=== PATIENT | female | born 1940 ===

== ENCOUNTER 2017-05-03 15:15 | Emergency (ER) | payer MEDICARE ==
[2017-05-03 15:16] VITALS: BMI 25.4
[2017-05-03 15:34] VITALS: BP 128/88; PULSE 81; RESP 16; TEMP 97.6; O2SAT 96
[2017-05-03 16:05] LABS: BASO % 0.4 % (0.0-2.0); EOS % 0.2 % (0.0-4.0); HEMATOCRIT 41.3 % (34.0-47.0); LYMPH # 1.7 K/uL (1.0-4.3); LYMPH % 20.6 % (20.0-40.0); MEAN CELL VOLUME 88.4 fl (81.0-99.0); MEAN CORPUSCULAR HEMOGLOBIN 30.5 pg (27.0-31.0); MEAN CORPUSCULAR HGB CONC 34.5 g/dL (33.0-37.0); MEAN PLATELET VOLUME 7.7 fl (7.2-11.7); MONO # 0.5 K/uL (0.0-0.8); MONO % 6.4 % (0.0-10.0); NEUT # 6.1 K/uL (1.8-7.0); NEUT % 72.4 % (50.0-75.0); NRBC % 0.1 % (0.0-0.0); RED CELL DISTRIBUTION WIDTH 13.2 % (11.5-14.5); WHITE BLOOD COUNT 8.4 K/uL (4.8-10.8)
--- NOTE | 2017-05-03 16:06 | ED PDOC ---
HPI: Psych/Substance Abuse Time Seen by Provider: 05/03/17 15:41 Chief Complaint (Nursing): Psychiatric Evaluation Chief Complaint (Provider): Psychiatric Evaluation History Per: Patient History/Exam Limitations: no limitations Onset/Duration Of Symptoms: Days (x 2) Current Symptoms Are (Timing): Still Present Associated Symptoms: Depression, Suicidal Thoughts. denies: Suicidal Plan Additional Complaint(s): Carolynn is a 76 y/o female who presents to the ED for crisis evaluation. She reports taking Ambien 10 mg and Ativan 0.5 mg together after a recent medication change. Since yesterday, patient is experiencing increased drowsiness and waking up with suicidal ideations. Patient is depressed, crying in the ED, and does not have a suicidal plan. PMD: Unknown Past Medical History Reviewed: Historical Data, Nursing Documentation, Vital Signs Vital Signs: Last Vital Signs Temp 97.6 F 05/03/17 15:31 Pulse 81 05/03/17 15:31 Resp 16 05/03/17 15:31 BP 128/88 05/03/17 15:31 Pulse Ox 96 05/03/17 15:31 - Medical History PMH: Gastritis, Gall Bladder Disease, HTN, Hypercholesterolemia - Surgical History Surgical History: Cholecystectomy - Family History Family History: States: Unknown Family Hx - Immunization History Hx Tetanus Toxoid Vaccination: Yes Hx Influenza Vaccination: Yes Hx Pneumococcal Vaccination: Yes - Home Medications Home Medications: Ambulatory Orders Medication Instructions Recorded hydroCHLOROthiazide [Hydrodiuril] 25 mg PO DAILY 08/10/16 LORazepam [Ativan] 1 mg PO HS PRN 01/31/17 Pantoprazole [Protonix EC Tab] 40 mg PO DAILY 04/30/17 Melatonin 1 mg PO DAILY #30 tab 05/03/17 Zolpidem [Ambien] 10 mg PO HS 05/03/17 - Allergies Allergies/Adverse Reactions: Allergies Allergy/AdvReac Type Severity Reaction Status Date / Time No Known Allergies Allergy Verified 05/03/17 15:31 Review of Systems ROS Statement: Except As Marked, All Systems Reviewed And Found Negative Psych: Positive for: Depression, Suicidal ideation (without suicidal plan), Other (Increased sleepiness) Physical Exam - Reviewed Nursing Documentation Reviewed: Yes Vital Signs Reviewed: Yes - Physical Exam Appears: Positive for: Non-toxic, No Acute Distress Head Exam: Positive for: ATRAUMATIC, NORMAL INSPECTION, NORMOCEPHALIC Skin: Positive for: Normal Color, Warm, Dry Eye Exam: Positive for: EOMI, Normal appearance, PERRL Neck: Positive for: Normal, Painless ROM, Supple Cardiovascular/Chest: Positive for: Regular Rate, Rhythm. Negative for: Murmur Respiratory: Positive for: Normal Breath Sounds. Negative for: Accessory Muscle Use, Respiratory Distress Back: Positive for: Normal Inspection. Negative for: Vertebral Tenderness Extremity: Positive for: Normal ROM. Negative for: Deformity Neurologic/Psych: Positive for: Alert, Oriented, Other (Crying on exam) - Laboratory Results Result Diagrams: 05/03/17 15:59 05/03/17 15:59 - ECG O2 Sat by Pulse Oximetry: 96 (RA) Pulse Ox Interpretation: Normal Medical Decision Making Medical Decision Making: Time: 15:38 Initial Impression: Crisis evaluation Initial Plan: --Ordered EKG, urinalysis, CBC, urine drug screen, CMP, and alcohol serology --Placed in a 1:1 observation --Patient will be medically cleared and have crisis evaluation 17:59 Pt will be d/c with depression. advised to take melatonin for sleeping given outpt tx. Scribe Attestation: Documented by Brenda Weems, acting as a scribe for Ananya Majano PA-C Provider Scribe Attestation: All medical record entries made by the Scribe were at my direction and personally dictated by me. I have reviewed the chart and agree that the record accurately reflects my personal performance of the history, physical exam, medical decision making, and the department course for this patient. I have also personally directed, reviewed, and agree with the discharge instructions and disposition. Disposition - Clinical Impression Clinical Impression: Depression - Patient ED Disposition Is Patient to be Admitted: No Counseled Patient/Family Regarding: Studies Performed, Diagnosis, Need For Followup, Rx Given - Disposition Disposition: Routine/Home Disposition Time: 18:03 Condition: STABLE Prescriptions: Melatonin 1 mg PO DAILY #30 tab Instructions: Depression (ED) Forms: [facility] (Bulgarian)
[2017-05-03 16:16] LABS: RBC URINE 2 /hpf (0-3); URINE BACTERIA RARE (<OCC); URINE BILIRUBIN NEGATIVE (NEGATIVE); URINE BLOOD NEGATIVE (NEGATIVE); URINE COLOR STRAW (YELLOW); URINE GLUCOSE (UA) NEG (Normal); URINE KETONE NEGATIVE (NEGATIVE); URINE LEUKOCYTE ESTERASE SMALL Leu/uL (Negative); URINE PROTEIN NEGATIVE (NEGATIVE); URINE UROBILINOGEN 0.2-1.0 mg/dL (0.2-1.0); WBC URINE 5 /hpf (0-5)
[2017-05-03 16:27] LABS: ALB/GLOB RATIO 1.5 (1.0-2.1); ALCOHOL SERUM < 10 mg/dl (0-10); ALKALINE PHOSPHATASE 66 U/L (38-126); ALT/SGPT 41 U/L (9-52); AST/SGOT 30 U/L (14-36); BILIRUBIN,TOTAL 0.6 mg/dl (0.2-1.3); BLOOD UREA NITROGEN 15 mg/dl (7-17); CALCIUM 9.8 mg/dL (8.4-10.2); CARBON DIOXIDE 29 mmol/L (22-30); CHLORIDE 96 mmol/L (98-107); GFR AFRICAN-AMERICAN > 60; GLUCOSE,RANDOM 117 mg/dL (65-105); POTASSIUM 3.9 MMOL/L (3.6-5.0); SODIUM 135 mmol/l (132-148); TOTAL PROTEIN 7.6 G/DL (6.3-8.2)
--- NOTE | 2017-05-04 13:16 | CARD ---
APPROVED REPORT EKG Measurement Heart [id number] <Conclusion> Normal sinus rhythm Inferior infarct, age undetermined Possible Anterior infarct, age undetermined Abnormal ECG
== END 2017-05-03 18:17 | disposition home or self-care (01) ==
LOC: H.ER 15:15
DX: F32.9 Major depressive disorder, single episode, unspecified (principal); E78.00 Pure hypercholesterolemia, unspecified; I10 Essential (primary) hypertension
CPT/HCPCS: 80053; 81003; 85025; 93005; 99282; G0480

== ENCOUNTER 2017-05-04 10:56 | Inpatient (IN) | payer MEDICARE ==
[2017-05-04 11:03] VITALS: BMI 24.0
--- NOTE | 2017-05-04 11:26 | ED PDOC ---
HPI: Psych/Substance Abuse Time Seen by Provider: 05/04/17 11:17 Chief Complaint (Provider): suicidal ideation History Per: Patient History/Exam Limitations: no limitations Additional Complaint(s): Carolynn Tobar is a 76 year old female, with a previous medical history of anxiety and hypertension, who presents to the ED with complaints of insomnia associated with depression and suicidal ideation with no plan. She denies any homicidal ideation or other medical complaints at this time. Patient was seen in the ED yesterday and reports symptoms have not resolved. Past Medical History Reviewed: Historical Data, Nursing Documentation, Vital Signs Vital Signs: Last Vital Signs Temp 97.9 F 05/04/17 11:02 Pulse 70 05/04/17 11:02 Resp 16 05/04/17 11:02 BP 150/90 05/04/17 11:02 Pulse Ox 100 05/04/17 11:02 - Medical History PMH: Anxiety, Gastritis, Gall Bladder Disease, HTN, Hypercholesterolemia Denies: Diabetes, Hepatitis, HIV, Seizures, Sexually Transmitted Disease - Surgical History Surgical History: Cholecystectomy - Family History Family History: States: Unknown Family Hx - Immunization History Hx Tetanus Toxoid Vaccination: Yes Hx Influenza Vaccination: Yes Hx Pneumococcal Vaccination: Yes - Home Medications Home Medications: Ambulatory Orders Medication Instructions Recorded hydroCHLOROthiazide [Hydrodiuril] 25 mg PO DAILY 08/10/16 LORazepam [Ativan] 1 mg PO HS PRN 01/31/17 Pantoprazole [Protonix EC Tab] 40 mg PO DAILY 04/30/17 Melatonin 1 mg PO DAILY #30 tab 05/03/17 Zolpidem [Ambien] 10 mg PO HS 05/03/17 - Allergies Allergies/Adverse Reactions: Allergies Allergy/AdvReac Type Severity Reaction Status Date / Time No Known Allergies Allergy Verified 05/03/17 15:31 Review of Systems ROS Statement: Except As Marked, All Systems Reviewed And Found Negative Psych: Positive for: Depression, Suicidal ideation. Negative for: Other ( homicidal ideation) Physical Exam - Reviewed Nursing Documentation Reviewed: Yes Vital Signs Reviewed: Yes - Physical Exam Appears: Positive for: Well (appears tearful), Non-toxic, No Acute Distress Head Exam: Positive for: ATRAUMATIC, NORMAL INSPECTION, NORMOCEPHALIC Skin: Positive for: Normal Color, Warm, DRY Eye Exam: Positive for: EOMI, Normal appearance, PERRL ENT: Positive for: Normal ENT Inspection Neck: Positive for: Normal, Painless ROM Cardiovascular/Chest: Positive for: Regular Rate, Rhythm Respiratory: Positive for: CNT, Normal Breath Sounds Gastrointestinal/Abdominal: Positive for: Normal Exam, Bowel Sounds, Soft Back: Positive for: Normal Inspection Extremity: Positive for: Normal ROM Neurologic/Psych: Positive for: Alert, Oriented - ECG O2 Sat by Pulse Oximetry: 100 (RA) Pulse Ox Interpretation: Normal Medical Decision Making Medical Decision Making: Initial Plan: * crisis evaluation * admission Scribe Attestation: Documented by Adriana Richards, acting as a scribe for Cliff Connor MD. Medically stable for psychiatric admission Provider Scribe Attestation: All medical record entries made by the Scribe were at my direction and personally dictated by me. I have reviewed the chart and agree that the record accurately reflects my personal performance of the history, physical exam, medical decision making, and the department course for this patient. I have also personally directed, reviewed, and agree with the discharge instructions and disposition. Disposition - Clinical Impression Clinical Impression: Depression - Patient ED Disposition Is Patient to be Admitted: Yes - Disposition Disposition Time: 11:34 Condition: FAIR - Pt Status Changed To: Hospital Disposition Of: Inpatient - Admit Certification Admit to Inpatient:: After my assessment, the patient will require hospitalization for at least two midnights. This is because of the severity of symptoms shown, intensity of services needed, and/or the medical risk in this patient being treated as an outpatient. - POA Present On Arrival: None
[2017-05-04 13:26] VITALS: O2SAT 98
--- NOTE | 2017-05-04 15:55 | PCM.PSYCH ---
Initial Psychiatric Evaluation - Initial Psychiatric Evaluation Type of Admission: Voluntary Legal Status: Guardian Chief Complaint (in patient's own words): pt is depressed Patient's Reaction to Hospitalization: pt is sad History of Present Illness and Precipitating Events: This is a 76 yr old female presents to the ED with complaints of insomnia associated with depression and suicidal ideation with no plan. She denies any homicidal ideation or other medical complaints at this time. Patient was seen in the ED yesterday and reports symptoms have not resolved pt was sween by pMD and started on meds but became more depressed and referred to ER. Past Psychiatric History - Past Psychiatric History History of Abuse: not known History of ETOH/Drug Use: denies History of Family Illness: denies Pertinent Medical Hx (Current Medical&Sleep Prob, Allergies): Allergies Allergy/AdvReac Type Severity Reaction Status Date / Time No Known Allergies Allergy Verified 05/03/17 15:31 hydroCHLOROthiazide [Hydrodiuril] 25 mg PO DAILY 08/10/16 LORazepam [Ativan] 1 mg PO HS PRN 01/31/17 Pantoprazole [Protonix EC Tab] 40 mg PO DAILY 04/30/17 Melatonin 1 mg PO DAILY #30 tab 05/03/17 Zolpidem [Ambien] 10 mg PO HS 05/03/17 HTN,GERD Review of Systems - Review of Systems All systems: reviewed and no additional remarkable complaints except Mental Status Examination - Affect Affect: Constricted - Motor Activity Motor Activity: Calm - Reliability in Providing Information Reliability in Providing Information: Fair - Speech Speech: Relevant - Mood Mood: Depressed - Formal Thought Process Formal Thought Process: No Impairment - Obsessions/Compulsions Compulsions: No - Cognitive Functions Orientation: Person, Place, Situation Sensorium: Alert Attention/Concentration: Easily distracted Judgement: Imparied, as evidence by: Lack of insight into illness Memory: Recent intact, as evidence by: Ability to recall events of the day, Remote intact, as evidenced by: Ability to recall historical events DSM 5 DX - DSM 5 DSM 5 Diagnosis: major depresion,severe - Recommended/Plan of Treatment Treatment Recommendations and Plan of Treatment: Will get more collateral info from familty Will star pt on celexa 10 mg hs for depression and titrate as needed and trazodone 25 mg hs for sleep
[2017-05-04] MEDS ORDERED: Magnesium Hydroxide Susp 30 ml UD PO PRN (16:44)
[2017-05-04] MEDS ORDERED: Alum-Mag Hydrox-Simethicone Susp (30 mL) PO PRN (16:44)
[2017-05-05 08:02] LABS: T4 9.11 ug/dl (5.5-11.0)
[2017-05-05 08:16] LABS: THYROID STIMULATING HORMONE 2.75 mIU/ML (0.46-4.68)
[2017-05-05 09:19] LABS: CHOLESTEROL 215 mg/dL (0-199)
[2017-05-05] MEDS: Pantoprazole 40 mg EC Tab PO SCH (09:36)
--- NOTE | 2017-05-05 10:51 | PCM.PYCHPN ---
Psychiatric Progress Note - Psychiatric Progress Note Patient seen today, length of contact: Patient evaluated, case discussed with team, chart reviewed, 35 min Patient Chief Complaint: "I can't sleep" Problems Identified/Issues Discussed: Patient reports that she continues to feel depressed and that her insomnia makes her even more depressed and causes her to feel desperate. We discussed increasing the Trazodone. No adverse effects to medications noted. No psychotic symptoms. No suicidal/homicidal ideation. Medication Change: Yes (Increase Trazodone to 100 mg PO HS) Medical Record Reviewed: Yes Consults ordered or reviewed: Medicine consult Mental Status Examination - Cognitive Function Orientation: Person, Place, Situation Memory: Intact Association: WNL Fund of Knowledge: [facility] Decription of patient's judgement and insights: Fair I/J - Mood Mood: Depressed - Affect Affect: Constricted - Speech Speech: Appropriate - Formal Thought Process Formal Thought Process: No Impairment Psychotic Thoughts and Behaviors: No AH/VH/paranoia/delusions - Suicidal Ideation Suicidal Ideation: No - Homicidal Ideation Homicidal Ideation: No Goal/Treatment Plan - Goal/Treatment Plan Need for Continued Stay: Remain at risks for inpatient hospitalization, Severe depression anxiety Progress Toward Problem(s) and Goals/Treatment Plan: Major Depressive Disorder -Continue Celexa 10 mg PO HS -Increase Trazodone to 100 mg PO HS -Individual and group therapy -Medicine consult -Disposition planning Estimated Date of D/C: 05/09/17
[2017-05-05 17:50] LABS: FOLATE 17.9 ng/mL
[2017-05-06] MEDS: Pantoprazole 40 mg EC Tab PO SCH (08:24)
--- NOTE | 2017-05-06 10:46 | PCM.PYCHPN ---
Psychiatric Progress Note - Psychiatric Progress Note Patient seen today, length of contact: Patient evaluated, case discussed with team, chart reviewed, 35 min Patient Chief Complaint: "I can't sleep" Problems Identified/Issues Discussed: Patient reports that she continues to have difficulty sleeping and does not want to take Trazodone any more because she does not think it is effective. We discussed starting Restoril. R/b/se reviewed, patient given a handout in dominican about the medication. No adverse effects to medications noted. No psychotic symptoms. No suicidal/homicidal ideation. Medication Change: Yes (Stop Trazodone, Start Restoril 15 mg PO HS) Medical Record Reviewed: Yes Mental Status Examination - Cognitive Function Orientation: Person, Place, Situation Memory: Intact Attention: WNL Association: L Fund of Knowledge: [facility] Decription of patient's judgement and insights: Fair I/J - Mood Mood: Depressed - Affect Affect: Constricted - Speech Speech: Appropriate - Formal Thought Process Formal Thought Process: No Impairment Psychotic Thoughts and Behaviors: No AH/VH/paranoia/delusions - Suicidal Ideation Suicidal Ideation: No - Homicidal Ideation Homicidal Ideation: No Goal/Treatment Plan - Goal/Treatment Plan Need for Continued Stay: Remain at risks for inpatient hospitalization, Severe depression anxiety Progress Toward Problem(s) and Goals/Treatment Plan: Major Depressive Disorder; patient is reporting improved mood, but continues to report difficulty sleeping. -Continue Celexa 10 mg PO HS -Stop Trazodone, start Restoril 15 mg PO HS -Individual and group therapy -Medicine consult -Disposition planning- likely discharge tomorrow w/ outpatient follow-up Estimated Date of D/C: 05/07/17
[2017-05-07 05:59] VITALS: BP 114/77; PULSE 65; RESP 18; TEMP 98.3
[2017-05-07] MEDS: Pantoprazole 40 mg EC Tab PO SCH (08:44)
--- NOTE | 2017-05-07 09:55 | PCM.PYCHDC ---
Mental Status Examination - Mental Status Examination Orientation: Person, Place, Situation, Time Memory: Intact Mood: Neutral Affect: Broad Speech: Appropriate Attention: WNL Concentration: WNL Association: WNL Fund of Knowledge: WNL Formal Thought Process: No Impairment Description of patient's judgement and insight: Fair I/J Psychotic Thoughts and Behaviors: No AH/VH/paranoia/delusions Suicidal Ideation: No Current Homicidal Ideation?: No Discharge Summary - Discharge Note Reason for Hospitalization: This is a 76 yr old female presents to the ED with complaints of insomnia associated with depression and suicidal ideation with no plan. She denies any homicidal ideation or other medical complaints at this time. Patient was seen in the ED yesterday and reports symptoms have not resolved pt was sween by pMD and started on meds but became more depressed and referred to ER. Consultations:: List each consultation separately and include: 1. Reason for request. 2. Findings. 3. Follow-up Consultations: Medicine consult Summary of Hospital Course include:: 1. Description of specific treatment plan utilized for patients during their course of treatmen. 2. Summarize the time- course for resolution of acute symptoms and/or regressed behaviors. 3. Describe issues identified and worked on during hospitalization. 4. Describe medication utilized. 5. Describe medical problems identified and treated. 6. Reassessment of suicide risk Summary of Hospital Course: Patient was admitted to the psychiatry unit. Individual and group therapy were provided. Patient was stabilized on Celexa 10 mg PO HS and Restoril 15 mg PO HS PRN insomnia. She reports improved mood and sleep. She is psychiatrically stable for discharge with outpatient follow-up. - Final Diagnosis (DSM 5) Condition upon Discharge: STABLE DSM 5: Major Depressive Disorder Disposition: HOME/ ROUTINE Follow-up Treatment Plan: Major Depressive Disorder; patient is psychiatrically stable for discharge -Continue Celexa 10 mg PO HS -Continue Restoril 15 mg PO HS PRN insomnia -Individual and group therapy -Medicine consult appreciated -Outpatient follow-up Discharge >35 min Prescriptions/Medication Reconciliation: Citalopram [celeXA] 10 mg PO HS #30 tab Temazepam [Restoril] 15 mg PO HS #30 cap - Smoking Cessation Smoking Cessation Medication prescribed: No Reason for not providing: Not indicated - Antipsychotic Medications Pt discharged on 2 or more routine antipsychotic medications: No
== END 2017-05-07 13:24 | disposition home or self-care (01) | DRG 881 ==
LOC: H.ER 10:56 → H.ERHOLD 11:31 → H.STEP 13:40
PROVIDERS: ADMIT Psychiatry & Neurology Psychiatry; ATTEND Psychiatry & Neurology Psychiatry
DX: F32.9 Major depressive disorder, single episode, unspecified (principal); R45.851 Suicidal ideations; I10 Essential (primary) hypertension; F41.9 Anxiety disorder, unspecified; G47.00 Insomnia, unspecified; K21.9 Gastro-esophageal reflux disease without esophagitis; E78.00 Pure hypercholesterolemia, unspecified; K29.70 Gastritis, unspecified, without bleeding